=== PATIENT | female | born 1945 | race Caucasian/White ===

== ENCOUNTER → 2017-09-13 | Outpatient (CLI) | payer OTHER | LOC: CIMAGING 14:47 | PROVIDERS: ATTEND Internal Medicine | DX: Z12.31 Encounter for screening mammogram for malignant neoplasm of breast (principal) | CPT/HCPCS: G0202 ==

== ENCOUNTER → 2018-01-31 | Outpatient (CLI) | payer OTHER | LOC: FIMAGING 13:04 | PROVIDERS: ATTEND Nurse Practitioner Adult Health | DX: R06.89 Other abnormalities of breathing (principal); R06.09 Other forms of dyspnea; R60.9 Edema, unspecified; M40.205 Unspecified kyphosis, thoracolumbar region ==

== ENCOUNTER 2018-02-11 08:40 | Emergency (ER) | payer OTHER ==
[2018-02-11 08:57] VITALS: TEMP 98.4
--- NOTE | 2018-02-11 09:13 | EDPHY ---
H & P Stated Complaint: left knee injury occurred today 7am, states buckled Time Seen by Provider: 02/11/18 08:47 HPI/ROS: Chief Complaint: Knee pain HPI: 72-year-old woman had the sudden onset of left knee pain which was walking this morning. Patient states she felt her knee twist and a popping sensation. She had the pain in the back of her left knee. She has been unable to weight bear since. She is unable to flex past 45. No redness. Did have some swelling in her leg last week and was started on Lasix by her nurse practitioner. She has since had resolution of the swelling. No calf pain. No redness. No fevers or chills. No numbness or weakness. ROS: 10 point Review of Systems is negative except as noted in the HPI. Family History: non-contributory Physical Exam: Gen: Awake, Alert, No Distress HEENT: Nose: no rhinorrhea Eyes: PERRLA, EOMI Mouth: Moist mucosa Neck: Supple, no JVD Back: no CVA tenderness, no midline tenderness Ext: Mild bilateral nonpitting edema, left knee has mild effusion, no erythema , not warm. She has a mild affects past 45. No medial or lateral collateral ligament tenderness. Negative anterior drawer sign, no laxity. No calf pain. Skin: no rash Neuro: CN II-XII intact, Sensation grossly intact, Strength 5/5 in bilateral upper and lower extremities - Medical/Surgical History Other PMH: htn, knee and hip replacement, c3-c4 ACDF, c/s x2, multiple abd surg , appy - Social History Smoking Status: Never smoked Constitutional: Initial Vital Signs Temperature (C) 36.9 C 02/11/18 08:53 Heart Rate 104 H 02/11/18 08:53 Respiratory Rate 20 02/11/18 08:53 Blood Pressure 183/122 H 02/11/18 08:53 O2 Sat (%) 93 02/11/18 08:53 O2 Delivery Mode Room Air Allergies/Adverse Reactions: adhesive tape [Adhesive Tape] Allergy (Intermediate, Verified 02/11/18 08:52) rash/blisters ketamine [Ketamine] Allergy (Intermediate, Verified 02/11/18 08:52) awakeness bandaids Allergy (Intermediate, Uncoded 02/11/18 08:52) rash/ blisters ekg electrodes Allergy (Intermediate, Uncoded 02/11/18 08:52) rash/blisters avocados Allergy (Mild, Uncoded 02/11/18 08:52) Vomiting bananas Allergy (Mild, Uncoded 02/11/18 08:52) tineo inside of mouth honey Allergy (Mild, Uncoded 02/11/18 08:52) tineo inside of mouth Home Medications: Medication Instructions Recorded Atenolol 02/11/18 Omeprazole 02/11/18 Medical Decision Making - Diagnostics Imaging Results: Imaging Impressions Knee X-Ray 02/11/18 09:02 Impression: 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 Mild suprapatellar joint effusion. Imaging: I viewed and interpreted images myself ED Course/Re-evaluation: X-rays negative for acute fracture. Symptoms consistent with sprain. Will place her knee immobilizer, crutches, follow up with her orthopedist. Departure - Departure Disposition: Home, Routine, Self-Care Clinical Impression: Knee sprain Condition: Good Instructions: Knee Sprain (ED), Knee Immobilizer (ED), R.I.C.E. Treatment (ED) Additional Instructions: Use a knee immobilizer and crutches until you follow up with Orthopedics. Follow up with her orthopedist in 4-5 days for further evaluation. Return to the emergency depart for increasing pain, redness, worsening swelling , or any other concerns. Alternate acetaminophen (1000 mg) with ibuprofen (400 mg) every 4 hours as needed for pain. Referrals: Malinda Jurado MD [Primary Care Provider] - As per Instructions
[2018-02-11 10:17] VITALS: BP 155/122; PULSE 98; RESP 18; O2SAT 98
== END 2018-02-11 10:12 | disposition home or self-care (01) ==
LOC: CED 08:40
DX: S83.92XA Sprain of unspecified site of left knee, initial encounter (principal); I10 Essential (primary) hypertension; X50.9XXA Other and unspecified overexertion or strenuous movements or postures, initial encounter; Y99.8 Other external cause status; Y93.01 Activity, walking, marching and hiking
CPT/HCPCS: 73564; 99283; L1830

== ENCOUNTER → 2018-02-28 | Outpatient (CLI) | payer OTHER | LOC: FIMAGING 15:38 | DX: M79.89 Other specified soft tissue disorders (principal) ==